=== PATIENT | female | born 1945 | race Hispanic/Latino ===

== ENCOUNTER 2022-11-15 18:53 | Emergency (ER) | payer OTHER, MEDICARE ==
[~2022-11-15] VITALS: Ht 154.9 cm; Wt 59.0 kg
[2022-11-15 19:25] LABS: HEMATOCRIT 31.6 % (36-48); MEAN CORPUSCULAR HEMOGLOBIN 29.5 pg (27.0-33.0); MEAN CORPUSCULAR HGB CONC 32.3 g/dL (32.0-36.0); MEAN CORPUSCULAR VOLUME 91.3 fL (79-99); RED BLOOD CELL COUNT(AUTO) 3.46 MIL/uL (4.00-5.50); WHITE BLOOD COUNT (AUTO) 7.1 K/uL (4.8-10.8)
[2022-11-15 19:33] LABS: POTASSIUM 3.8 mmol/L (3.5-5.1)
[2022-11-15 19:38] LABS: ALBUMIN 3.9 g/dL (3.5-5.0); TOTAL PROTEIN, SERUM 7.2 g/dL (6.0-8.3)
[2022-11-15] MEDS ORDERED: LACTATED RINGERS 1000ML 1,000 ML IV ONE (20:30)
[2022-11-15 20:46] LABS: INR 1.01 (0.85-1.15)
[2022-11-15 20:47] LABS: PARTIAL THROMBOPLASTIN TIME 27.6 SEC (26.3-35.5)
[2022-11-15 22:19] VITALS: BP 134/57
== END 2022-11-15 22:25 | disposition home or self-care (01) ==
LOC: EDH 18:53
DX: F41.9 Anxiety disorder, unspecified (principal); R42 Dizziness and giddiness; R06.02 Shortness of breath; I10 Essential (primary) hypertension; E11.9 Type 2 diabetes mellitus without complications; M19.90 Unspecified osteoarthritis, unspecified site
CPT/HCPCS: 36415; 71045; 80053; 82550; 83880; 84484; 85027; 85610; 85730; 93005